=== PATIENT | male | born 1940 | race Caucasian/White ===

== ENCOUNTER 2017-05-04 10:52 | Emergency (ER) | payer MEDICARE, OTHER ==
[2017-05-04] MEDS ORDERED: SODIUM CHLORIDE 0.9% 1,000 ML IV ONE (11:22)
[2017-05-04] MEDS ORDERED: ONDANSETRON 4 MG/2 ML VIAL IVP STA (11:32)
[2017-05-04] MEDS ORDERED: ONDANSETRON 4 MG/2 ML VIAL ONE (11:34)
[2017-05-04 11:37] LABS: BASOPHILS # (AUTO) 0.1 10^3/uL (0.0-0.1); BASOPHILS % (AUTO) 1.4 %; EOSINOPHILS # (AUTO) 0.2 10^3/uL (0.0-0.7); EOSINOPHILS % (AUTO) 3.3 %; HCT - HEMATOCRIT 41.7 % (42.0-52.0); HGB - HEMOGLOBIN 14.2 g/dL (14.0-18.0); LYMPHOCYTES # (AUTO) 1.7 10^3/uL (1.5-3.5); LYMPHOCYTES % (AUTO) 30.2 %; MEAN CORPUSCULAR HEMOGLOBIN 31.1 pg (27.0-31.0); MEAN CORPUSCULAR VOLUME 91.5 fL (80.0-94.0); MEAN PLATELET VOLUME 8.6 fL (7.4-11.4); MONOCYTES # (AUTO) 0.5 10^3/uL (0.0-1.0); MONOCYTES % (AUTO) 9.3 %; NEUTROPHILS # (AUTO) 3.1 10^3/uL (1.5-6.6); NEUTROPHILS % (AUTO) 55.8 %; RED BLOOD COUNT 4.55 10^6/uL (4.70-6.10); RED CELL DISTRIBUTION WIDTH 14.7 % (12.0-15.0); UNCORRECTED WHITE BLOOD COUNT 5.5 x10^3/uL; WHITE BLOOD COUNT 5.5 x10^3/uL (4.8-10.8)
[2017-05-04 11:50] LABS: ALBUMIN/GLOBULIN RATIO 1.6 (1.0-2.2); BILIRUBIN,TOTAL 1.2 mg/dL (0.2-1.0); CALCIUM 9.1 mg/dL (8.5-10.3); CREATININE 1.2 mg/dL (0.6-1.2); POTASSIUM 3.9 mmol/L (3.5-5.0); TOTAL PROTEIN 6.6 g/dL (6.7-8.2)
--- NOTE | 2017-05-04 12:08 | ED Physician Documentation ---
PD HPI ABD PAIN - Stated complaint Stated Complaint: ABD PX - Chief complaint Chief Complaint: Abd Pain - History obtained from History obtained from: Patient - History of Present Illness Timing - onset: Enter time (829), Today Timing - duration: Hours Timing - details: Abrupt onset, Still present Quality: Cramping, Sharp, Pain Location: Suprapubic Improved by: Laying still Worsened by: Moving, Position, Palpation Associated symptoms: Nausea, Vomiting. 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 The pain did not improve and he eventually came to the emergency department with some nausea and vomiting as well. He relates that he has had this similar pain 2-3 times in the past year and a half. He has never related this to the abdominal wall hernia and the prior episodes spontaneously resolved without sequela and the patient did not seek care. He was not ill prior to this and does not feel ill now. His symptoms have resolved. Review of Systems Constitutional: denies: Fever Eyes: denies: Decreased vision Ears: denies: Ear pain Nose: denies: Congestion Throat: denies: Sore throat Cardiac: denies: Chest pain / pressure, Palpitations Respiratory: denies: Dyspnea, Cough GI: reports: Abdominal Pain, Nausea, Vomiting : denies: Dysuria, Frequency Skin: denies: Rash Musculoskeletal: denies: Neck pain, Back pain, Extremity pain Neurologic: denies: Generalized weakness, Focal weakness, Numbness PD PAST MEDICAL HISTORY - Past Medical History Past Medical History: Yes Cardiovascular: High cholesterol - Past Surgical History Cardiovascular: CABG - Present Medications Home Medications: Ambulatory Orders Medication Instructions Recorded Confirmed Atorvastatin Calcium 10 mg PO DAILY 05/04/17 05/04/17 Omeprazole 40 mg PO DAILY 05/04/17 05/04/17 Tamsulosin [Flomax] 0.4 mg PO DAILY 05/04/17 05/04/17 - Allergies Allergies/Adverse Reactions: Allergies Allergy/AdvReac Type Severity Reaction Status Date / Time No Known Drug Allergies Allergy Verified 05/04/17 10:59 - Social History Does the pt smoke?: No Smoking Status: Never smoker Does the pt drink ETOH?: No Does the pt have substance abuse?: No - Immunizations Immunizations are current?: Yes PD ED PE NORMAL - Vitals Vital signs reviewed: Yes (hypertension ) - General General: Alert and oriented X 3, No acute distress, Well developed/nourished - HEENT HEENT: Atraumatic, PERRL, EOMI - Neck Neck: Supple, no meningeal sign - Cardiac Cardiac: RRR, No murmur - Respiratory Respiratory: No respiratory distress, Clear bilaterally - Abdomen Abdomen: Soft, Other (There is a firm 5cm mass in the epigastrium that is easily reduced with palpation and the paitent has complete resolution of his pain. ) - Back Back: No CVA TTP, No spinal TTP - Derm Derm: Normal color, Warm and dry, No rash - Extremities Extremities: No deformity, No edema - Neuro Neuro: No motor deficit, No sensory deficit Eye Opening: Spontaneous Motor: Obeys Commands Verbal: Oriented GCS Score: 15 - Psych Psych: Normal mood, Normal affect Results - Vitals Vitals: Vital Signs - 24 hr 05/04/17 05/04/17 05/04/17 10:55 11:26 12:20 Temperature 36.6 C Heart Rate 65 97 63 Respiratory 16 18 16 Rate Blood Pressure 173/85 H 112/73 137/76 H O2 Saturation 99 98 94 Oxygen O2 Source Room air - EKG (time done) 1011 Rate: Rate (enter#) (84) [place]: LAD QRS: Low voltage Ischemia: Non specific changes Compare to prior EKG: Old EKG unavailable Computer interpretation: Agree with computer - Labs Labs: Laboratory Tests 05/04/17 05/04/17 11:20 11:20 WBC 5.5 RBC 4.55 L Hgb 14.2 Hct 41.7 L MCV 91.5 MCH 31.1 H MCHC 34.0 RDW 14.7 Plt Count 179 MPV 8.6 Neut # 3.1 Lymph # 1.7 [place] # 0.5 Eos # 0.2 Baso # 0.1 Absolute Nucleated RBC 0.00 Nucleated RBC % 0.0 Sodium 139 Potassium 3.9 Chloride 105 Carbon Dioxide 26 Anion Gap 8.0 BUN 20 Creatinine 1.2 Estimated GFR (MDRD) 59 L Glucose 105 H Calcium 9.1 Total Bilirubin 1.2 H AST 17 ALT 13 Alkaline Phosphatase 69 Total Protein 6.6 L Albumin 4.1 Globulin 2.5 Albumin/Globulin Ratio 1.6 Lipase 42 PD MEDICAL DECISION MAKING - ED course Complexity details: reviewed results, re-evaluated patient, considered differential, d/w patient ED course: 76-year-old male with acute onset of suprapubic pain has resolution of his pain spontaneously here in the emergency department. His pain was completely resolved way by the time I was able to examine his lower abdomen. I did examine his upper abdomen initially and reduced a hernia with resounding bowel sounds and resolution of the patient's symptoms. Departure - Departure Disposition: 01 Home, Self Care Clinical Impression: Ventral hernia without obstruction or gangrene Condition: Stable Instructions: ED Hernia Inguinal Follow-Up: Eliazar Jara MD [Provider Admit Priv/Credential] - Comments: Today it appears the episode of pain you had in her lower abdomen was related to the hernia you have in your upper abdomen. If you feel this mass stuck out again place her hand over it and get it to go back in. Follow-up with the surgeon as instructed. Discharge Date/Time: 05/04/17 12:28
[2017-05-04 12:23] VITALS: BP 137/76
== END 2017-05-04 12:28 | disposition home or self-care (01) ==
LOC: ED 10:52
DX: K43.9 Ventral hernia without obstruction or gangrene (principal); E78.00 Pure hypercholesterolemia, unspecified; Z95.1 Presence of aortocoronary bypass graft
CPT/HCPCS: 80053; 83690; 85025; 96361; 96374; 99283; 99284

== ENCOUNTER 2017-05-22 10:12 | Outpatient (CLI) | payer MEDICARE, OTHER | END 2017-05-22 10:13 | disposition home or self-care (01) | LOC: RT 10:12 | PROVIDERS: ATTEND Internal Medicine Cardiovascular Disease | DX: I25.10 Atherosclerotic heart disease of native coronary artery without angina pectoris (principal) | CPT/HCPCS: 93005 ==

== ENCOUNTER 2019-03-08 19:02 | Emergency (ER) | payer MEDICARE, OTHER ==
[2019-03-08 21:23] LABS: BASOPHILS # (AUTO) 0.1 10^3/uL (0.0-0.1); BASOPHILS % (AUTO) 0.8 %; EOSINOPHILS # (AUTO) 0.2 10^3/uL (0.0-0.7); EOSINOPHILS % (AUTO) 2.8 %; HGB - HEMOGLOBIN 13.3 g/dL (14.0-18.0); LYMPHOCYTES # (AUTO) 1.5 10^3/uL (1.5-3.5); LYMPHOCYTES % (AUTO) 18.8 %; MEAN CORPUSCULAR HEMOGLOBIN 31.4 pg (27.0-31.0); MEAN CORPUSCULAR HGB CONC 33.8 g/dL (32.0-36.0); MEAN CORPUSCULAR VOLUME 93.1 fL (80.0-94.0); MEAN PLATELET VOLUME 9.7 fL (7.4-11.4); MONOCYTES # (AUTO) 0.8 10^3/uL (0.0-1.0); MONOCYTES % (AUTO) 10.1 %; NEUTROPHILS # (AUTO) 5.2 10^3/uL (1.5-6.6); NEUTROPHILS % (AUTO) 67.1 %; PLT - PLATELET COUNT 188 10^3/uL (130-450); RED BLOOD COUNT 4.23 10^6/uL (4.70-6.10); WHITE BLOOD COUNT 7.8 x10^3/uL (4.8-10.8)
[2019-03-08 21:36] LABS: ALBUMIN 4.1 g/dL (3.2-5.5); ALBUMIN/GLOBULIN RATIO 1.8 (1.0-2.2); BILIRUBIN,TOTAL 1.4 mg/dL (0.2-1.0); CALCIUM 9.3 mg/dL (8.5-10.3); CREATININE 1.4 mg/dL (0.6-1.2); TOTAL PROTEIN 6.4 g/dL (6.7-8.2)
--- NOTE | 2019-03-08 21:38 | XRAY Report ---
Reason: Chest Pain Procedure Date: 03/08/2019 Accession Number: [id number] / [id number] Procedure: XR - Chest 1 View X-Ray CPT Code: 57703 FULL RESULT: EXAM: CHEST RADIOGRAPHY EXAM DATE: 03/08/2019 09:27 PM. CLINICAL HISTORY: Chest Pain. COMPARISON: None. TECHNIQUE: 1 view. FINDINGS: Lungs/Pleura: No focal opacities evident. No pleural effusion. No pneumothorax. Mediastinum: Heart size is within normal limits. Patient has noted a median sternotomy for coronary artery bypass grafting. Left subclavian dual-lead pacemaker is in place. Other: None. IMPRESSION: No acute intrathoracic plain film abnormality. RADIA
--- NOTE | 2019-03-08 22:47 | ED Physician Documentation ---
History of Present Illness - Stated complaint Stated Complaint: RAPID HB/PACEMAKER - Chief complaint Chief Complaint: Cardiac - History obtained from History obtained from: Patient - History of Present Illness Timing: How many hours ago (2) Pain level max: 0 Pain level now: 0 Improved by: rest Worsened by: exertion - Additonal information Additional information: 78-year-old male states that he was mowing his lawn today and he felt short of breath. He states he also felt nauseated. No sweating. He states that this lasted approximately 20 to 30 minutes. No chest pain. Asymptomatic now. He states that he took his pulse and his heart rate was 99. This concerned him so he came to the emergency department. Does have a history of CABG 10 years ago. Review of Systems Ten Systems: 10 systems reviewed and negative Constitutional: denies: Fever, Chills Throat: denies: Sore throat Cardiac: denies: Palpitations Respiratory: denies: Cough GI: denies: Nausea, Vomiting, Diarrhea Skin: denies: Rash Musculoskeletal: denies: Neck pain, Back pain Neurologic: denies: Headache PD PAST MEDICAL HISTORY - Past Medical History Past Medical History: Yes Cardiovascular: High cholesterol, Coronary artery disease - Past Surgical History Past Surgical History: Yes Cardiovascular: CABG - Present Medications Home Medications: Ambulatory Orders Medication Instructions Recorded Confirmed Atorvastatin Calcium 10 mg PO DAILY 05/04/17 05/04/17 Omeprazole 40 mg PO DAILY 05/04/17 05/04/17 Tamsulosin [Flomax] 0.4 mg PO DAILY 05/04/17 05/04/17 - Allergies Allergies/Adverse Reactions: Allergies Allergy/AdvReac Type Severity Reaction Status Date / Time No Known Drug Allergies Allergy Verified 05/04/17 10:59 - Social History Does the pt smoke?: No Smoking Status: Never smoker Does the pt drink ETOH?: No Does the pt have substance abuse?: No - Immunizations Immunizations are current?: Yes PD ED PE NORMAL - Vitals Vital signs reviewed: Yes - General General: Alert and oriented X 3, No acute distress, Well developed/nourished - HEENT HEENT: PERRL, Moist mucous membranes - Neck Neck: Supple, no meningeal sign - Cardiac Cardiac: RRR, Strong equal pulses - Respiratory Respiratory: No respiratory distress, Clear bilaterally - Abdomen Abdomen: Soft, Non tender, Non distended - Derm Derm: Warm and dry, No rash - Extremities Extremities: No calf tenderness / cord - Neuro Neuro: Alert and oriented X 3 - Psych Psych: Normal mood, Normal affect Results - Vitals Vitals: Vital Signs - 24 hr 03/08/19 03/08/19 03/08/19 19:32 21:37 23:17 Temperature 36.7 C Heart Rate 75 67 61 Respiratory 20 16 17 Rate Blood Pressure 122/72 113/73 136/74 H O2 Saturation 98 94 95 03/08/19 23:30 Temperature Heart Rate 59 L Respiratory 13 Rate Blood Pressure 143/73 H O2 Saturation 95 Oxygen O2 Source Room air - EKG (time done) 192 Rate: Rate (enter#) (88) Rhythm: NSR Intervals: Wide QRS, LBBB Compare to prior EKG: Changed from prior EKG (2017) - Labs Labs: Laboratory Tests 03/08/19 03/08/19 03/08/19 21:20 21:20 21:20 WBC 7.8 RBC 4.23 L Hgb 13.3 L Hct 39.4 L MCV 93.1 MCH 31.4 H MCHC 33.8 RDW 14.0 Plt Count 188 MPV 9.7 Neut # (Auto) 5.2 Lymph # (Auto) 1.5 [place] # (Auto) 0.8 Eos # (Auto) 0.2 Baso # (Auto) 0.1 Absolute Nucleated RBC 0.00 Nucleated RBC % 0.0 Sodium 142 Potassium 3.9 Chloride 110 Carbon Dioxide 24 Anion Gap 8.0 BUN 26 H Creatinine 1.4 H Estimated GFR (MDRD) 49 L Glucose 109 H Calcium 9.3 Total Bilirubin 1.4 H AST 18 ALT 15 Alkaline Phosphatase 60 Troponin I High Sens 55.4 H* Total Protein 6.4 L Albumin 4.1 Globulin 2.3 Albumin/Globulin Ratio 1.8 Lipase 43 03/08/19 22:46 WBC RBC Hgb Hct MCV MCH MCHC RDW Plt Count MPV Neut # (Auto) Lymph # (Auto) [place] # (Auto) Eos # (Auto) Baso # (Auto) Absolute Nucleated RBC Nucleated RBC % Sodium Potassium Chloride Carbon Dioxide Anion Gap BUN Creatinine Estimated GFR (MDRD) Glucose Calcium Total Bilirubin AST ALT Alkaline Phosphatase Troponin I High Sens 58.5 H* Total Protein Albumin Globulin Albumin/Globulin Ratio Lipase - Rads (name of study) cxr Radiology: Prelim report reviewed, EMP read contemporaneously, See rad report (no acute abnormality) PD MEDICAL DECISION MAKING - ED course Complexity details: reviewed results, re-evaluated patient, considered differential (No ST elevation VT, no aortic dissection, no PE, no tension pneumothorax, no aortic aneurysm), d/w patient ED course: 78-year-old male with dyspnea while mowing the lawn tonight. This was mild. Transient. Currently feels normal. Mild nausea. States he had a normal coronary angiogram in September of this year. High-sensitivity troponin is mildly elevated, but likely chronic for him. There was no change at the 2-hour bailey. Asymptomatic here. 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 Patient counseled regarding signs and symptoms for which I believe and urgent re-evaluation would be necessary. Patient with good understanding of and agreement to plan and is comfortable going home at this time This document was made in part using voice recognition software. While efforts are made to proofread this document, sound alike and grammatical errors may occur. Departure - Departure Disposition: 01 Home, Self Care Clinical Impression: Dyspnea Qualifiers: Dyspnea type: dyspnea on exertion Qualified Code(s): R06.09 - Other forms of dyspnea Condition: Good Instructions: ED Dyspnea Shortness of Breath Follow-Up: Randall Martines MD [Primary Care Provider] - Within 1 week Comments: The cause of your symptoms is unclear tonight. Your testing today does not show any acute abnormalities. Return if you worsen especially if you develop chest pain or worsening symptoms or difficulty breathing at rest.
[2019-03-08 23:35] VITALS: BP 143/73
== END 2019-03-08 23:49 | disposition home or self-care (01) ==
LOC: ED 19:02
DX: R06.09 Other forms of dyspnea (principal); R11.0 Nausea; I44.7 Left bundle-branch block, unspecified; I25.10 Atherosclerotic heart disease of native coronary artery without angina pectoris; Z95.1 Presence of aortocoronary bypass graft
CPT/HCPCS: 36415; 71045; 80053; 83690; 84484; 85025; 93005; 99284

== ENCOUNTER 2019-04-23 10:02 | Outpatient (CLI) | payer OTHER ==
[2019-04-23] MEDS ORDERED: REGADENOSON 0.4 MG/5 ML SYRINGE IVP ONE ×2 (11:56→13:47)
[2019-04-23] MEDS ORDERED: AMINOPHYLLINE 250 MG/10 ML VIAL ONE (11:56)
--- NOTE | 2019-04-23 15:24 | Nuclear Medicine Report ---
Reason: WILSON,ATYPICAL CHEST PAIN Procedure Date: 04/23/2019 Accession Number: [id number] / [id number] Procedure: NM - Myocardial Perfusion STR/RST CPT Code: Addended Final Report FULL RESULT: EXAM: SINGLE-ISOTOPE PHARMACOLOGICAL STRESS TEST WITH REGADENOSON. SINGLE-ISOTOPE AND ONE-DAY REST/STRESS MYOCARDIAL PERFUSION SCANS WITH TOMOGRAPHIC IMAGING, QUANTITATIVE ANALYSIS, WALL MOTION ANALYSIS AND CALCULATION OF EJECTION FRACTION. EXAM DATE: 04/23/2019 01:53 PM. CLINICAL HISTORY: WILSON,ATYPICAL CHEST PAIN. COMPARISON: CHEST 1 VIEW 03/08/2019 9:14 PM. TECHNIQUE: After the intravenous administration of 9.9 mCi of Tc-99m sestamibi, a rest myocardial perfusion scan was done with tomography. Motion correction was applied when appropriate. After an appropriate delay, pharmacological stress was performed with the infusion of 0.4 mg regadenoson per protocol. According to protocol, 43 mCi of Tc-99m sestamibi was injected for stress myocardial perfusion scan. Motion correction was applied when appropriate. Gated tomographic images were obtained for wall motion analysis and computation of left ventricular ejection fraction. FINDINGS: Perfusion images: Left ventricular chamber size appears normal at rest and mildly increased at stress. There is a moderate size moderate-severe perfusion deficit involving the mid to apical anterior wall and apex on stress images which is substantially improved on rest images with residual small size mild to moderate severity deficit involving the apical third anterior wall and apex. SSS 21, SRS 11, SDS 9. Gated images: There is evidence of hypokinesis involving the apex and to a lesser degree the anterior, septal, and inferior apical segments. Calculated left ventricular EDV 113 mL, ESV 44 mL. The left ventricular ejection fraction is estimated at 61% (normal IMPRESSION: 1. Moderate size, moderate-severe partially reversible perfusion deficit involving the mid to apical anterior wall and apex, consistent with stress-induced ischemia, with underlying small size, mild to moderate fixed perfusion deficit. 2. No convincing fixed perfusion deficits. 3. Left ventricular ejection fraction of 61% (normal Please correlate findings with stress ECG tracings and procedure notes. RADIA The call report notification system was initiated by Dr. Osiel Howe at 03:04 PM on 04/23/2019. ADDENDUM: 04/23/19 17:06 The above call report findings were discussed with Dr. Martines by Dr. Osiel Howe at 04:33 PM on 04/23/2019.
--- NOTE | 2019-04-23 17:52 | CARDIAC PROCEDURE NOTE ---
DATE OF SERVICE: 04/23/2019 Physician: Tori Gonzales MD INDICATION 1. Dyspnea on exertion. 2. Chest pain. CARDIAC RISK FACTORS 1. Male gender. 2. Elevated cholesterol. 3. Family history of heart disease. 4. Advanced age. 5. Patient has known CAD with prior [place] history. DESCRIPTION OF PROCEDURE: After signing informed consent, patient underwent a pharmaceutical stress test using Lexiscan with nuclear myocardial perfusion imaging. RESTING HEART RATE: 71. PEAK HEART RATE: 79. RESTING BLOOD PRESSURE: 117/75. PEAK BLOOD PRESSURE: 128/72. Lexiscan was infused per protocol. The patient developed brief flushing, no chest pain or shortness of breath. Oxygen saturation was 98% during the entire test. RESTING EKG: Dual-chamber paced rhythm. EKG AT PEAK: Continued dual-chamber paced rhythm, therefore, no evaluation of the ST segments or T waves can be done. SUMMARY 1. Abnormal resting EKG, with acceptable 100% pacing. 2. No chest pain or shortness of breath occurred with pharmaceutical stress. 3. Cannot use EKG for interpretation of ischemic changes. 4. Nuclear images reported separately. cc: Randall Martines MD TD: 04/23/2019 16:17 MTDD
== END 2019-04-23 10:03 | disposition home or self-care (01) ==
LOC: DI 10:02
PROVIDERS: ATTEND Internal Medicine Cardiovascular Disease
DX: R06.00 Dyspnea, unspecified (principal); R07.89 Other chest pain; R94.31 Abnormal electrocardiogram [ECG] [EKG]; E78.00 Pure hypercholesterolemia, unspecified; I25.10 Atherosclerotic heart disease of native coronary artery without angina pectoris; I25.2 Old myocardial infarction; Z82.49 Family history of ischemic heart disease and other diseases of the circulatory system
CPT/HCPCS: 78452; 93017; A9500; J2785

== ENCOUNTER 2019-09-15 11:15 | Outpatient (CLI) | payer OTHER ==
[2019-09-15 11:44] LABS: HGB - HEMOGLOBIN 13.9 g/dL (14.0-18.0); MEAN CORPUSCULAR HEMOGLOBIN 30.9 pg (27.0-31.0); MEAN CORPUSCULAR HGB CONC 32.5 g/dL (32.0-36.0); MEAN CORPUSCULAR VOLUME 95.1 fL (80.0-94.0); MEAN PLATELET VOLUME 9.6 fL (7.4-11.4); RED BLOOD COUNT 4.5 10^6/uL (4.70-6.10); WHITE BLOOD COUNT 5.6 x10^3/uL (4.8-10.8)
[2019-09-15 11:59] LABS: ALBUMIN 4.1 g/dL (3.2-5.5); ALBUMIN/GLOBULIN RATIO 1.5 (1.0-2.2); BILIRUBIN,TOTAL 1.6 mg/dL (0.2-1.0); CALCIUM 8.8 mg/dL (8.5-10.3); CREATININE 1.1 mg/dL (0.6-1.2); TOTAL PROTEIN 6.8 g/dL (6.7-8.2)
== END 2019-09-15 11:16 | disposition home or self-care (01) ==
LOC: LAB 11:15
PROVIDERS: ATTEND Internal Medicine Cardiovascular Disease
DX: I25.10 Atherosclerotic heart disease of native coronary artery without angina pectoris (principal)
CPT/HCPCS: 36415; 80053; 84443; 85027

== ENCOUNTER 2022-06-14 14:49 | Outpatient (CLI) | payer MEDICARE, OTHER ==
--- NOTE | 2022-06-16 08:48 | XRAY Report ---
PROCEDURE: Chest 2 View X-Ray INDICATIONS: COUGH TECHNIQUE: 2 views of the chest were acquired. COMPARISON: None FINDINGS: Surgical changes and devices: Left-sided dual-chamber pacemaker, midline sternal wires and mediastina l vascular clips noted Lungs and pleura: Trace atelectasis and or infiltrate noted in both costophrenic angles Mediastinum: Mediastinal contours are normal. Heart size is normal. Bones and chest wall: No suspicious bony abnormalities. Soft tissues appear unremarkable. IMPRESSION: Trace atelectasis and or infiltrate noted in the costophrenic angles Reviewed by: Omari Guaman MD on 06/16/2022 7:47 AM [facility] Approved by: Omari Guaman MD on 06/16/2022 7:47 AM [facility] Station ID: [id number]
== END 2022-06-14 14:50 | disposition home or self-care (01) ==
LOC: DI 14:49
PROVIDERS: ATTEND Family Medicine
DX: R05.9 Cough, unspecified (principal); R91.8 Other nonspecific abnormal finding of lung field